=== PATIENT | male | born 1970 | race Caucasian/White ===

== ENCOUNTER 2022-05-17 09:22 | Emergency (ER) | payer SELFPAY ==
[~2022-05-17] VITALS: Ht 180.3 cm; Wt 81.8 kg
[2022-05-17 09:30] VITALS: BP 128/81
--- NOTE | 2022-05-17 10:04 | NUR ---
Met with patient in regards to alcohol use and to see if patient wanted any resources for treatment options. Patient is currently at [facility]. He hasn't had a drink in two days. Wanting medication for withdrawal and cravings. I talked to Chepe he is going to see him.
[2022-05-17] MEDS ORDERED: gabapentin 300mg capsule PO STA (10:34)
[2022-05-17] MEDS ORDERED: GABA300C PO (10:52)
== END 2022-05-17 11:12 | disposition home or self-care (01) ==
LOC: ER 09:22
DX: F10.139 Alcohol abuse with withdrawal, unspecified (principal); R42 Dizziness and giddiness; Z79.899 Other long term (current) drug therapy; Y90.9 Presence of alcohol in blood, level not specified
CPT/HCPCS: 99283